=== PATIENT | male | born 1960 | race Caucasian/White ===

== ENCOUNTER 2018-10-07 08:49 | Inpatient (IN) | payer OTHER ==
[~2018-10-07] VITALS: Ht 172.7 cm; Wt 91.7 kg
[2018-10-07] MEDS ORDERED: TADA5TAB2 PO (13:31)
[2018-10-07] MEDS ORDERED: TRAZ-137 PO (13:31)
[2018-10-07] MEDS ORDERED: NAPR-685 PO (13:31)
[2018-10-07] MEDS ORDERED: METO25TA35 PO (13:31)
[2018-10-07 14:18] LABS: BASOPHILS % (AUTO) 2 % (0-1); EOSINOPHILS # (AUTO) 0.32 x10^3/uL (0-0.4); EOSINOPHILS % (AUTO) 3 % (1-7); LYMPHOCYTES % (AUTO) 20 % (22-44); MD NO; MEAN CORPUSCULAR HEMOGLOBIN 31.3 pg (27.5-34.5); MEAN CORPUSCULAR HGB CONC 33.4 g/dL (33.2-36.2); MEAN CORPUSCULAR VOLUME 93.6 fL (81-97); MEAN PLATELET VOLUME 7.8 fL (7.4-10.4); MONOCYTES # (AUTO) 0.71 x10^3/uL (0.2-0.8); MONOCYTES % (AUTO) 6 % (2-9); NEUTROPHILS # (AUTO) 7.96 x10^3/uL (1.8-6.8); NEUTROPHILS % (AUTO) 69 % (42-75); PLATELET COUNT 230 x10^3/uL (130-400); RED CELL DISTRIBUTION WIDTH 13.7 % (9.4-14.8)
[2018-10-07 14:18] LABS: MICROSCOPIC NOT IND
[2018-10-07 14:28] LABS: PROTHROMBIN TIME 10.5 Seconds (9.6-11.5)
[2018-10-07 14:30] LABS: ALANINE AMINOTRANSFERASE 23 U/L (12-78); ALBUMIN 4.3 g/dL (3.4-5.0); ANION GAP 6 mmol/L (5-15); CALCIUM 9.1 mg/dL (8.5-10.1); CHLORIDE 109 mmol/L (98-107); CREATININE 1.11 mg/dL (0.7-1.3)
[2018-10-07 14:32] LABS: ALKALINE PHOSPHATASE 62 U/L (45-117); BILIRUBIN,TOTAL 0.7 mg/dL (0.2-1.0); TOTAL PROTEIN 7.8 g/dL (6.4-8.2)
[2018-10-07 14:45] LABS: HEMOGLOBIN A1C 5.7 % (4.2-6.3)
[2018-10-08] VITALS (15 sets, daily range): BP systolic 74–163; BP diastolic 45–89
[2018-10-08] MEDS ORDERED: CHLORHEXIDINE 15 ML UDC MM PRN (05:00)
[2018-10-08] MEDS ORDERED: INSULIN LISPRO 100 UNITS/ML, PEN SQ-INSULIN SCH (05:00)
[2018-10-08] MEDS ORDERED: DO NOT GIVE MC SCH (05:00)
[2018-10-08] MEDS ORDERED: PAPAVERINE 30 MG/ML, 2ML ONE (06:37)
[2018-10-08] MEDS ORDERED: HEPARIN 1,000 UNITS/ML, 10ML ONE (06:38)
[2018-10-08] MEDS ORDERED: FENTANYL PF 250 MCG/5ML ONE ×4 (06:45→06:46)
[2018-10-08] MEDS ORDERED: MIDAZOLAM 10MG/2 ML ONE (06:45)
[2018-10-08] MEDS ORDERED: CALCIUM CHLORIDE 10%, 10ML SYR ONE (06:46)
[2018-10-08] MEDS ORDERED: PHENYLEPHRINE 10 MG/ML ONE (06:46)
[2018-10-08] MEDS ORDERED: PROPOFOL 10 MG/ML, 20ML ONE (06:46)
[2018-10-08] MEDS ORDERED: AMINOCAPROIC ACID 250 MG/ML, 20ML ONE (06:46)
[2018-10-08] MEDS ORDERED: ROCURONIUM 10MG/ML,5ML ONE (06:46)
[2018-10-08] MEDS ORDERED: CEFUROXIME 1.5 GM in SODIUM CHLORIDE 0.9% 50 ML IVPB PRN (07:30)
[2018-10-08] MEDS ORDERED: ALBUMIN HUMAN 5% 500 ML IV PRN (07:30)
[2018-10-08] MEDS ORDERED: EPINEPHRINE 2 MG in SODIUM CHLORIDE 0.9% 248 ML IV SCH (07:30)
[2018-10-08] MEDS ORDERED: DEXMEDETOMIDINE 200 MCG in SODIUM CHLORIDE 0.9% 48 ML IV SCH (07:30)
[2018-10-08] MEDS ORDERED: POTASSIUM CHLORIDE 80 MEQ, SODIUM BICARBONATE 8.4% 10 MEQ, MAGNESIUM SULFATE 0.5 GM, LI... IV PRN (07:30)
[2018-10-08] MEDS ORDERED: VANCOMYCIN 1,500 MG in SODIUM CHLORIDE 0.9% 250 ML IV PRN (07:30)
[2018-10-08] MEDS ORDERED: PHENYLEPHRINE 10 MG in SODIUM CHLORIDE 0.9% 249 ML IV PRN ×2 (07:30→10:16)
[2018-10-08] MEDS ORDERED: REGULAR INSULIN 62.5 UNITS in SODIUM CHLORIDE 0.9% 249.375 ML IV PRN ×2 (07:30→10:16)
[2018-10-08] MEDS ORDERED: MANNITOL PMX 20% 500 ML IVPB PRN (07:30)
[2018-10-08] MEDS ORDERED: PROTAMINE SULFATE 10 MG/ML, 25ML ONE (08:43)
[2018-10-08] MEDS: DOCUSATE 100 MG CAPSULE PO SCH ×2 (09:00→21:00)
[2018-10-08] MEDS ORDERED: SODIUM CHLORIDE FLUSH 10ML SYR IVF SCH (09:00)
[2018-10-08] MEDS ORDERED: MUPIROCIN OINT 2%, 22GM TP SCH (09:00)
[2018-10-08] MEDS ORDERED: LIDOCAINE 2% 100MG/5ML SYRINGE ONE (10:14)
[2018-10-08] MEDS ORDERED: methylPREDNISolone SOD SUCC 125 MG/2 ML ONE (10:14)
[2018-10-08] MEDS ORDERED: SODIUM BICARBONATE 1 MEQ/ML, 50ML VIAL ONE (10:14)
[2018-10-08] MEDS ORDERED: HEPARIN 1,000 UNITS/ML, 30ML ONE (10:15)
[2018-10-08] MEDS ORDERED: ALBUMIN HUMAN 25% 50 ML ONE (10:15)
[2018-10-08] MEDS ORDERED: VASOPRESSIN 50 UNIT in SODIUM CHLORIDE 0.9% 247.5 ML IV PRN (10:16)
[2018-10-08] MEDS ORDERED: DOBUTAMINE 250 MG in SODIUM CHLORIDE 0.9% 230 ML IV PRN (10:16)
[2018-10-08] MEDS ORDERED: DEXMEDETOMIDINE 200 MCG in SODIUM CHLORIDE 0.9% 48 ML IV PRN (10:16)
[2018-10-08] MEDS ORDERED: NITROGLYCERIN/D5W PMX 250 ML IV PRN (10:16)
[2018-10-08] MEDS ORDERED: SODIUM CHLORIDE 0.9% 1,000 ML IV PRN (10:16)
[2018-10-08] MEDS ORDERED: MIDAZOLAM 1 MG/ML, 5ML IVPush PRN (10:30)
[2018-10-08] MEDS ORDERED: ACETAMINOPHEN 325 MG TABLET PO PRN (10:30)
[2018-10-08] MEDS ORDERED: HYDROcodone/APAP 10/325 MG TABLET PO PRN (10:30)
[2018-10-08] MEDS ORDERED: DEXTROSE 4 GM TAB.CHEW PO PRN (10:30)
[2018-10-08] MEDS ORDERED: ACETAMINOPHEN 650 MG SUPP PR PRN (10:30)
[2018-10-08] MEDS ORDERED: EPINEPHRINE 2 MG in SODIUM CHLORIDE 0.9% 248 ML IV PRN (10:30)
[2018-10-08] MEDS ORDERED: GLUCAGON 1 MG IM PRN (10:30)
[2018-10-08] MEDS ORDERED: HYDROcodone/APAP 5/325 TABLET PO PRN (10:30)
[2018-10-08] MEDS ORDERED: LACTATED RINGERS 1,000 ML IV PRN (10:30)
[2018-10-08] MEDS: KSCALE TO 4.5 IV SCH ×3 (10:30→22:30)
[2018-10-08] MEDS ORDERED: ONDANSETRON 2MG/ML, 2ML IVPush PRN (10:30)
[2018-10-08] MEDS ORDERED: BISACODYL 10 MG SUPP PR PRN (10:30)
[2018-10-08] MEDS ORDERED: FENTANYL PF 100 MCG/2ML IVPush PRN (10:30)
[2018-10-08] MEDS ORDERED: BISACODYL 5 MG EC TABLET PO PRN (10:30)
[2018-10-08] MEDS ORDERED: DEXTROSE 50%, 50ML SYRINGE IVPush PRN (10:30)
[2018-10-08] MEDS ORDERED: INSULIN REGULAR 100 UNITS/ML, 3ML VIAL IVPush PRN (10:30)
[2018-10-08] MEDS ORDERED: PROCHLORPERAZINE 5 MG/ML, 2ML IVPush PRN (10:30)
[2018-10-08] MEDS ORDERED: SODIUM BICARB 8.4%, 50ML SYRINGE IV PRN (10:30)
[2018-10-08 10:58] LABS: GLUCOSE BY BLOOD GAS ANALYZER 141 mg/dL (70-110); POTASSIUM BY BLOOD GAS ANALYZR 4.2 mmol/L (3.6-5.5)
[2018-10-08] MEDS: INSULIN LISPRO 100 UNITS/ML, PEN SQ-INSULIN SCH ×3 (11:00→21:00)
[2018-10-08 11:09] LABS: INTERNATIONAL NORMALIZED RATIO 1.28 (0.93-1.1); PROTHROMBIN TIME 13.3 Seconds (9.6-11.5)
[2018-10-08] MEDS ORDERED: MORPHINE SULFATE 4 MG/ML, 1ML ONE (11:19)
[2018-10-08] MEDS: morphine SULFATE 10 MG/ML, 1ML IVPush PRN ×2 (11:20→22:00)
[2018-10-08] MEDS ORDERED: NOVOSEVEN RT (FACTOR VIIA) RECOMB 1,000 MCG IVPush ONE (11:57)
[2018-10-08] MEDS: WARFARIN MODERAT DOSE PROTOCOL XX SCH (12:00)
[2018-10-08] MEDS ORDERED: CALCIUM CHLORIDE 13.6 MEQ in SODIUM CHLORIDE 0.9% 100 ML IV ONE (12:00)
[2018-10-08] MEDS ORDERED: NOVOSEVEN RT (FACTOR VIIA) RECOMB 1,000 MCG IVPush STA (13:13)
[2018-10-08] MEDS: MAGNESIUM SULFATE 1 GM in SODIUM CHLORIDE 0.9% 50 ML IVPB SCH (14:11)
[2018-10-08 15:39] LABS: MEAN CORPUSCULAR HEMOGLOBIN 31.2 pg (27.5-34.5); MEAN CORPUSCULAR HGB CONC 32.9 g/dL (33.2-36.2); MEAN CORPUSCULAR VOLUME 94.7 fL (81-97); MEAN PLATELET VOLUME 7.7 fL (7.4-10.4); PLATELET COUNT 136 x10^3/uL (130-400); RED BLOOD COUNT 4.81 x10^6/uL (4.38-5.82); RED CELL DISTRIBUTION WIDTH 14.3 % (9.4-14.8)
[2018-10-08 16:03] LABS: MD YES
[2018-10-08 16:05] LABS: <PLATELET ESTIMATE> ADEQUATE; <PLT MORPHOLOGY> NORMAL PLT MORPH; <RBC MORPHOLOGY> NORMAL; BAND#(MANUAL) 2.51 x10^3/uL; BANDS%(MANUAL) 14 % (0-7); LYMPH#(MANUAL) 0.36 x10^3/uL (1-3.4); LYMPHS% (MANUAL) 2 % (22-44); MONOS% (MANUAL) 5 % (2-9); SEG#(MANUAL) 14.14 x10^3/uL (1.8-6.8); SEGS% (MANUAL) 79 % (42-75)
[2018-10-08] MEDS: PROPOFOL 100 ML IV PRN ×2 (16:45→23:35)
[2018-10-08] MEDS ORDERED: PHARMACY MAY ADJ FOR RENAL FX MC SCH (18:00)
[2018-10-08] MEDS ORDERED: LIDOCAINE-MPF 1%, 2ML ENDO PRN (18:00)
[2018-10-08] MEDS ORDERED: ALBUTEROL/IPRATROPIUM 2.5MG/0.5MG, 3 ML INLINE SCH (18:00)
[2018-10-08] MEDS: CEFUROXIME 1.5 GM in SODIUM CHLORIDE 0.9% 50 ML IVPB SCH (20:04)
[2018-10-08] MEDS: VANCOMYCIN 1,500 MG in SODIUM CHLORIDE 0.9% 250 ML IVPB SCH (20:12)
[2018-10-08] MEDS: MUPIROCIN OINT 2%, 22GM NAS SCH (21:12)
[2018-10-08] MEDS: SODIUM CHLORIDE FLUSH 10ML SYR IVF SCH (21:12)
[2018-10-08] MEDS ORDERED: POTASSIUM CHLORIDE PMX 100 ML IV ONE (23:30)
[2018-10-09] MEDS: morphine SULFATE 10 MG/ML, 1ML IVPush PRN (01:39)
[2018-10-09] MEDS: KSCALE TO 4.5 IV SCH (04:30)
[2018-10-09 05:08] LABS: ALANINE AMINOTRANSFERASE 19 U/L (12-78); ALBUMIN 3.1 g/dL (3.4-5.0); ANION GAP 6 mmol/L (5-15); CALCIUM 7.6 mg/dL (8.5-10.1); CHLORIDE 112 mmol/L (98-107); CREATININE 0.84 mg/dL (0.7-1.3)
[2018-10-09 05:10] LABS: ALKALINE PHOSPHATASE 33 U/L (45-117); BILIRUBIN,TOTAL 0.8 mg/dL (0.2-1.0); TOTAL PROTEIN 5.6 g/dL (6.4-8.2)
[2018-10-09 05:11] LABS: BASOPHILS # (AUTO) 0.01 x10^3/uL (0-0.1); BASOPHILS % (AUTO) 0 % (0-1); EOSINOPHILS % (AUTO) 0 % (1-7); LYMPHOCYTES # (AUTO) 1.16 x10^3/uL (1-3.4); LYMPHOCYTES % (AUTO) 8 % (22-44); MD NO; MEAN CORPUSCULAR HGB CONC 34.4 g/dL (33.2-36.2); MEAN CORPUSCULAR VOLUME 93.1 fL (81-97); MEAN PLATELET VOLUME 8.1 fL (7.4-10.4); MONOCYTES # (AUTO) 1.31 x10^3/uL (0.2-0.8); MONOCYTES % (AUTO) 9 % (2-9); NEUTROPHILS # (AUTO) 12.75 x10^3/uL (1.8-6.8); NEUTROPHILS % (AUTO) 84 % (42-75); PLATELET COUNT 125 x10^3/uL (130-400); RED BLOOD COUNT 4.21 x10^6/uL (4.38-5.82)
[2018-10-09] MEDS: PROPOFOL 100 ML IV PRN (05:42)
[2018-10-09 05:54] LABS: INTERNATIONAL NORMALIZED RATIO 1.01 (0.93-1.1); PROTHROMBIN TIME 10.6 Seconds (9.6-11.5)
[2018-10-09] MEDS: INSULIN LISPRO 100 UNITS/ML, PEN SQ-INSULIN SCH ×4 (07:00→21:39)
[2018-10-09] MEDS: OXYcodone IR 5MG TABLET PO PRN ×5 (07:52→21:29)
[2018-10-09] MEDS: CEFUROXIME 1.5 GM in SODIUM CHLORIDE 0.9% 50 ML IVPB SCH (07:54)
[2018-10-09] MEDS: VANCOMYCIN 1,500 MG in SODIUM CHLORIDE 0.9% 250 ML IVPB SCH (08:29)
[2018-10-09] MEDS: WARFARIN BIOPROSTHETIC VALVE PROTOCOL 2-3 XX SCH (09:00)
[2018-10-09] MEDS: POTASSIUM CHLORIDE 10 MEQ TABLET.ER PO SCH (09:00)
[2018-10-09] MEDS ORDERED: KETOROLAC 30 MG/1 ML IM PRN (09:30)
[2018-10-09] MEDS ORDERED: ENALAPRILAT 1.25 MG/ML, 2ML IV PRN (09:30)
[2018-10-09] MEDS: ASPIRIN 81 MG TABLET EC PO SCH (09:31)
[2018-10-09] MEDS: AMLODIPINE 10 MG TAB PO SCH (09:31)
[2018-10-09] MEDS: DOCUSATE 100 MG CAPSULE PO SCH ×2 (09:31→21:29)
[2018-10-09] MEDS: FUROSEMIDE 20 MG/2 ML IV SCH (09:32)
[2018-10-09] MEDS: MUPIROCIN OINT 2%, 22GM NAS SCH ×2 (09:32→21:29)
[2018-10-09] MEDS: SODIUM CHLORIDE FLUSH 10ML SYR IVF SCH ×2 (09:33→21:31)
[2018-10-09] MEDS: WARFARIN MODERAT DOSE PROTOCOL XX SCH (12:00)
[2018-10-09] MEDS: MAGNESIUM SULFATE 1 GM in SODIUM CHLORIDE 0.9% 50 ML IVPB SCH (12:37)
[2018-10-09] MEDS ORDERED: WARFARIN 7.5 MG TABLET PO-COUM ONE (18:00)
[2018-10-09] MEDS: TRAZODONE 100MG TABLET PO SCH (21:29)
[2018-10-09] MEDS: CHLORHEXIDINE 15 ML UDC MM SCH (21:29)
[2018-10-10] MEDS: OXYcodone IR 5MG TABLET PO PRN ×4 (03:38→18:10)
[2018-10-10 04:33] LABS: MEAN CORPUSCULAR HEMOGLOBIN 31.9 pg (27.5-34.5); MEAN CORPUSCULAR HGB CONC 33.9 g/dL (33.2-36.2); MEAN PLATELET VOLUME 8.1 fL (7.4-10.4); PLATELET COUNT 103 x10^3/uL (130-400); RED BLOOD COUNT 4.11 x10^6/uL (4.38-5.82)
[2018-10-10 04:37] LABS: INTERNATIONAL NORMALIZED RATIO 1.13 (0.93-1.1); PROTHROMBIN TIME 11.8 Seconds (9.6-11.5)
[2018-10-10 04:38] LABS: O2 FLOW 1.75 L/min
[2018-10-10 04:41] LABS: ANION GAP 6 mmol/L (5-15); CALCIUM 7.7 mg/dL (8.5-10.1); CHLORIDE 105 mmol/L (98-107); CREATININE 0.78 mg/dL (0.7-1.3)
[2018-10-10 05:31] LABS: BASOPHILS # (AUTO) 0.05 x10^3/uL (0-0.1); BASOPHILS % (AUTO) 0 % (0-1); EOSINOPHILS # (AUTO) 0.02 x10^3/uL (0-0.4); EOSINOPHILS % (AUTO) 0 % (1-7); LYMPHOCYTES # (AUTO) 1.52 x10^3/uL (1-3.4); LYMPHOCYTES % (AUTO) 9 % (22-44); MD SCAN; MONOCYTES # (AUTO) 1.46 x10^3/uL (0.2-0.8); MONOCYTES % (AUTO) 9 % (2-9); NEUTROPHILS % (AUTO) 82 % (42-75)
[2018-10-10] MEDS: INSULIN LISPRO 100 UNITS/ML, PEN SQ-INSULIN SCH ×4 (08:18→20:33)
[2018-10-10] MEDS: WARFARIN BIOPROSTHETIC VALVE PROTOCOL 2-3 XX SCH (09:00)
[2018-10-10] MEDS: POTASSIUM CHLORIDE 10 MEQ TABLET.ER PO SCH (09:05)
[2018-10-10] MEDS: FUROSEMIDE 20 MG/2 ML IV SCH (09:05)
[2018-10-10] MEDS: ASPIRIN 81 MG TABLET EC PO SCH (09:05)
[2018-10-10] MEDS: AMLODIPINE 10 MG TAB PO SCH (09:06)
[2018-10-10] MEDS: MUPIROCIN OINT 2%, 22GM NAS SCH ×2 (09:06→20:29)
[2018-10-10] MEDS: SODIUM CHLORIDE FLUSH 10ML SYR IVF SCH ×2 (09:06→20:29)
[2018-10-10] MEDS: DOCUSATE 100 MG CAPSULE PO SCH ×2 (09:06→20:29)
[2018-10-10] MEDS: CHLORHEXIDINE 15 ML UDC MM SCH ×2 (09:06→20:29)
[2018-10-10] MEDS: WARFARIN MODERAT DOSE PROTOCOL XX SCH (11:28)
[2018-10-10] MEDS: MAGNESIUM SULFATE 1 GM in SODIUM CHLORIDE 0.9% 50 ML IVPB SCH (11:31)
[2018-10-10] MEDS ORDERED: WARFARIN 7.5 MG TABLET PO-COUM ONE (18:00)
[2018-10-10 19:28] VITALS: BP 146/91
[2018-10-10] MEDS: TRAZODONE 100MG TABLET PO SCH (20:29)
[2018-10-11 00:32] VITALS: BP 127/84
[2018-10-11 00:33] VITALS: BP 126/86
[2018-10-11] MEDS: OXYcodone IR 5MG TABLET PO PRN ×4 (01:21→20:05)
[2018-10-11 05:10] LABS: BASOPHILS # (AUTO) 0.14 x10^3/uL (0-0.1); BASOPHILS % (AUTO) 1 % (0-1); EOSINOPHILS # (AUTO) 0.09 x10^3/uL (0-0.4); EOSINOPHILS % (AUTO) 1 % (1-7); LYMPHOCYTES # (AUTO) 1.89 x10^3/uL (1-3.4); LYMPHOCYTES % (AUTO) 12 % (22-44); MD NO; MEAN CORPUSCULAR HEMOGLOBIN 32.2 pg (27.5-34.5); MEAN CORPUSCULAR HGB CONC 34.4 g/dL (33.2-36.2); MEAN CORPUSCULAR VOLUME 93.5 fL (81-97); MONOCYTES # (AUTO) 1.41 x10^3/uL (0.2-0.8); MONOCYTES % (AUTO) 9 % (2-9); NEUTROPHILS # (AUTO) 12.13 x10^3/uL (1.8-6.8); NEUTROPHILS % (AUTO) 77 % (42-75); PLATELET COUNT 103 x10^3/uL (130-400); RED BLOOD COUNT 4.19 x10^6/uL (4.38-5.82); RED CELL DISTRIBUTION WIDTH 13.9 % (9.4-14.8)
[2018-10-11 05:19] LABS: ANION GAP 4 mmol/L (5-15); CALCIUM 7.8 mg/dL (8.5-10.1); CHLORIDE 107 mmol/L (98-107); CREATININE 0.77 mg/dL (0.7-1.3); TRIGLYCERIDES 93 mg/dL (50-200)
[2018-10-11 06:30] VITALS: BP 136/86
[2018-10-11] MEDS: INSULIN LISPRO 100 UNITS/ML, PEN SQ-INSULIN SCH ×2 (07:00→11:00)
[2018-10-11] MEDS: WARFARIN BIOPROSTHETIC VALVE PROTOCOL 2-3 XX SCH (09:00)
[2018-10-11] MEDS: FUROSEMIDE 20 MG/2 ML IV SCH (09:39)
[2018-10-11] MEDS: CHLORHEXIDINE 15 ML UDC MM SCH (09:41)
[2018-10-11] MEDS: MUPIROCIN OINT 2%, 22GM NAS SCH ×2 (09:41→20:05)
[2018-10-11] MEDS: DOCUSATE 100 MG CAPSULE PO SCH ×2 (09:42→20:05)
[2018-10-11] MEDS: ASPIRIN 81 MG TABLET EC PO SCH (09:42)
[2018-10-11] MEDS: POTASSIUM CHLORIDE 10 MEQ TABLET.ER PO SCH (09:42)
[2018-10-11] MEDS: AMLODIPINE 10 MG TAB PO SCH (09:42)
[2018-10-11] MEDS: SODIUM CHLORIDE FLUSH 10ML SYR IVF SCH ×2 (09:47→20:05)
[2018-10-11 11:48] VITALS: BP 121/80
[2018-10-11] MEDS: WARFARIN MODERAT DOSE PROTOCOL XX SCH (12:00)
[2018-10-11 12:26] LABS: INTERNATIONAL NORMALIZED RATIO 1.68 (0.93-1.1); PROTHROMBIN TIME 17.3 Seconds (9.6-11.5)
[2018-10-11] MEDS ORDERED: WARFARIN 5 MG TABLET PO-COUM ONE ×2 (18:00→18:30)
[2018-10-11 19:27] VITALS: BP_SYST 121; BP_SYST 130; BP_DIAS 80; BP_DIAS 90
[2018-10-11] MEDS: TRAZODONE 100MG TABLET PO SCH (20:05)
[2018-10-12 01:01] VITALS: BP 136/86
[2018-10-12 06:04] LABS: BASOPHILS # (AUTO) 0.07 x10^3/uL (0-0.1); BASOPHILS % (AUTO) 1 % (0-1); EOSINOPHILS # (AUTO) 0.33 x10^3/uL (0-0.4); EOSINOPHILS % (AUTO) 3 % (1-7); LYMPHOCYTES # (AUTO) 1.84 x10^3/uL (1-3.4); LYMPHOCYTES % (AUTO) 15 % (22-44); MD NO; MEAN CORPUSCULAR HEMOGLOBIN 32.1 pg (27.5-34.5); MEAN CORPUSCULAR HGB CONC 34.3 g/dL (33.2-36.2); MEAN CORPUSCULAR VOLUME 93.6 fL (81-97); MONOCYTES % (AUTO) 9 % (2-9); NEUTROPHILS # (AUTO) 9.12 x10^3/uL (1.8-6.8); NEUTROPHILS % (AUTO) 73 % (42-75); PLATELET COUNT 134 x10^3/uL (130-400); RED BLOOD COUNT 4.35 x10^6/uL (4.38-5.82); RED CELL DISTRIBUTION WIDTH 13.6 % (9.4-14.8)
[2018-10-12 06:07] LABS: INTERNATIONAL NORMALIZED RATIO 1.53 (0.93-1.1); PROTHROMBIN TIME 15.8 Seconds (9.6-11.5)
[2018-10-12 06:11] LABS: ANION GAP 4 mmol/L (5-15); CALCIUM 8.2 mg/dL (8.5-10.1); CHLORIDE 106 mmol/L (98-107)
[2018-10-12 06:13] LABS: CREATININE 0.84 mg/dL (0.7-1.3)
[2018-10-12] MEDS: OXYcodone IR 5MG TABLET PO PRN ×4 (06:30→22:07)
[2018-10-12 06:32] VITALS: BP 121/85
[2018-10-12] MEDS: FUROSEMIDE 20 MG/2 ML IV SCH (08:48)
[2018-10-12] MEDS: DOCUSATE 100 MG CAPSULE PO SCH ×2 (08:48→21:55)
[2018-10-12] MEDS: AMLODIPINE 10 MG TAB PO SCH (08:48)
[2018-10-12] MEDS: ASPIRIN 81 MG TABLET EC PO SCH (08:48)
[2018-10-12] MEDS: POTASSIUM CHLORIDE 10 MEQ TABLET.ER PO SCH (08:48)
[2018-10-12] MEDS: SODIUM CHLORIDE FLUSH 10ML SYR IVF SCH ×2 (08:49→21:55)
[2018-10-12] MEDS: MUPIROCIN OINT 2%, 22GM NAS SCH ×2 (08:49→21:55)
[2018-10-12] MEDS: WARFARIN BIOPROSTHETIC VALVE PROTOCOL 2-3 XX SCH (09:00)
[2018-10-12] MEDS ORDERED: ASPI81TA45 PO (09:24)
[2018-10-12] MEDS ORDERED: WARF5TAB PO (09:24)
[2018-10-12] MEDS ORDERED: OXYC5TAB3 PO (09:24)
[2018-10-12] MEDS ORDERED: AMLO10TA8 PO (09:24)
[2018-10-12] MEDS: WARFARIN MODERAT DOSE PROTOCOL XX SCH (11:11)
[2018-10-12 13:10] VITALS: BP 135/90
[2018-10-12] MEDS ORDERED: WARFARIN 7.5 MG TABLET PO-COUM ONE (18:00)
[2018-10-12 20:27] VITALS: BP 126/86
[2018-10-12] MEDS: TRAZODONE 100MG TABLET PO SCH (21:55)
[2018-10-13 02:48] VITALS: BP 146/83
[2018-10-13 04:42] LABS: BASOPHILS # (AUTO) 0.09 x10^3/uL (0-0.1); BASOPHILS % (AUTO) 1 % (0-1); EOSINOPHILS % (AUTO) 4 % (1-7); LYMPHOCYTES # (AUTO) 1.74 x10^3/uL (1-3.4); LYMPHOCYTES % (AUTO) 15 % (22-44); MD NO; MEAN CORPUSCULAR HEMOGLOBIN 32.1 pg (27.5-34.5); MEAN CORPUSCULAR HGB CONC 34.4 g/dL (33.2-36.2); MEAN CORPUSCULAR VOLUME 93.2 fL (81-97); MEAN PLATELET VOLUME 7.6 fL (7.4-10.4); MONOCYTES # (AUTO) 0.96 x10^3/uL (0.2-0.8); MONOCYTES % (AUTO) 9 % (2-9); NEUTROPHILS # (AUTO) 7.97 x10^3/uL (1.8-6.8); NEUTROPHILS % (AUTO) 71 % (42-75); PLATELET COUNT 167 x10^3/uL (130-400); RED BLOOD COUNT 4.36 x10^6/uL (4.38-5.82); RED CELL DISTRIBUTION WIDTH 13.7 % (9.4-14.8)
[2018-10-13 04:48] LABS: INTERNATIONAL NORMALIZED RATIO 1.78 (0.93-1.1); PROTHROMBIN TIME 18.3 Seconds (9.6-11.5)
[2018-10-13 04:51] LABS: ANION GAP 7 mmol/L (5-15); CALCIUM 8.4 mg/dL (8.5-10.1); CHLORIDE 107 mmol/L (98-107)
[2018-10-13 07:25] VITALS: BP 116/79
[2018-10-13] MEDS: POTASSIUM CHLORIDE 10 MEQ TABLET.ER PO SCH (08:28)
[2018-10-13] MEDS: ASPIRIN 81 MG TABLET EC PO SCH (08:28)
[2018-10-13] MEDS: DOCUSATE 100 MG CAPSULE PO SCH (08:28)
[2018-10-13] MEDS: AMLODIPINE 10 MG TAB PO SCH (08:28)
[2018-10-13] MEDS: FUROSEMIDE 20 MG/2 ML IV SCH (08:28)
[2018-10-13] MEDS: WARFARIN BIOPROSTHETIC VALVE PROTOCOL 2-3 XX SCH (08:29)
[2018-10-13] MEDS: SODIUM CHLORIDE FLUSH 10ML SYR IVF SCH (08:29)
[2018-10-13] MEDS: MUPIROCIN OINT 2%, 22GM NAS SCH (08:34)
[2018-10-13] MEDS ORDERED: WARFARIN 7.5 MG TABLET PO-COUM ONE (18:00)
== END 2018-10-13 10:07 | disposition home health service (06) | DRG 219 ==
LOC: 5SO 10-08 04:17 → CSU 10-08 08:40 → 5SO 10-10 17:38 → 4WST 10-11 08:39 → 5SO 10-11 08:45 → DCLOUNGE 10-13 09:54
PROVIDERS: ADMIT Thoracic Surgery (Cardiothoracic Vascular Surgery); ATTEND Thoracic Surgery (Cardiothoracic Vascular Surgery)
PROC: 02RF08Z Replacement of Aortic Valve with Zooplastic Tissue, Open Approach (ICD-10-PCS; 2018-10-08)
PROC: 30233K1 Transfusion of Nonautologous Frozen Plasma into Peripheral Vein, Percutaneous Approach (ICD-10-PCS; 2018-10-08)
PROC: 30233R1 Transfusion of Nonautologous Platelets into Peripheral Vein, Percutaneous Approach (ICD-10-PCS; 2018-10-08)
PROC: 30233M1 Transfusion of Nonautologous Plasma Cryoprecipitate into Peripheral Vein, Percutaneous Approach (ICD-10-PCS; 2018-10-08)
PROC: 5A1221Z Performance of Cardiac Output, Continuous (ICD-10-PCS; 2018-10-08)
PROC: B246ZZ4 Ultrasonography of Right and Left Heart, Transesophageal (ICD-10-PCS; 2018-10-08)
PROC: 03HY32Z Insertion of Monitoring Device into Upper Artery, Percutaneous Approach (ICD-10-PCS; 2018-10-08)
PROC: 02HV33Z Insertion of Infusion Device into Superior Vena Cava, Percutaneous Approach (ICD-10-PCS; 2018-10-08)
PROC: B548ZZA Ultrasonography of Superior Vena Cava, Guidance (ICD-10-PCS; 2018-10-08)
PROC: 30233N1 Transfusion of Nonautologous Red Blood Cells into Peripheral Vein, Percutaneous Approach (ICD-10-PCS; principal; 2018-10-08 07:30)
DX: I35.0 Nonrheumatic aortic (valve) stenosis (principal); R57.8 Other shock; D62 Acute posthemorrhagic anemia; I16.0 Hypertensive urgency; E11.9 Type 2 diabetes mellitus without complications; E78.00 Pure hypercholesterolemia, unspecified; Y92.89 Other specified places as the place of occurrence of the external cause; E78.5 Hyperlipidemia, unspecified; I44.7 Left bundle-branch block, unspecified; I44.0 Atrioventricular block, first degree; F12.90 Cannabis use, unspecified, uncomplicated; F32.9 Major depressive disorder, single episode, unspecified; F41.9 Anxiety disorder, unspecified; I10 Essential (primary) hypertension; I35.1 Nonrheumatic aortic (valve) insufficiency; K21.9 Gastro-esophageal reflux disease without esophagitis; Z79.01 Long term (current) use of anticoagulants; Z82.49 Family history of ischemic heart disease and other diseases of the circulatory system; Z87.891 Personal history of nicotine dependence; Z95.3 Presence of xenogenic heart valve; Z87.81 Personal history of (healed) traumatic fracture
CPT/HCPCS: 36415; 36600; J7620; S0017; 71045; 71046; 80048; 80053; 81003; 82330; 82800; 82803; 82810; 82947; 82962; 83036; 83735; 84132; 84295; 84478; 85014; 85018; 85025; 85049; 85347; 85610; 85730; 86850; 86900; 86923; 87081; 88305; 93005; 93312; 93321; 93325; 93880; 94002; 94003; 94640; C1768; G0378; J0697; J1644; J1815; J1885; J2250; J2704; J2720; J3010; J3370; J3475; J3480; J7189; P9045; P9047; C1751; C1760; J0171; J1940; J2270; J2370; J2440; J2930; J7050; P9012; P9016; P9017; P9035